=== PATIENT | female | born 1990 | race Caucasian/White ===

== ENCOUNTER 2024-11-03 13:58 | Emergency (ER) | payer OTHER, SELFPAY ==
--- OUTSIDE RECORDS SUMMARY | 2007-05-23 01:01 | XMS_ITS | Encounter Summary ---
Author Organization [facility] Address [address] [place] [address] Care Team Providers Care Retail Shift Leader Name Role Phone Susan Martins MD Primary Care Provider [phone] Source Comments In the event this information is protected by the Federal Confidentiality of Alcohol and Drug AbusePatient Records regulations: The Federal rules restrict any use of the information to criminally investigate or prosecute any alcohol or drug abuse patient.[facility] Encounter Details Date Type Department Care Team (Late st Contact Info) Description 05/23/2007 12:01 AM EST Hospital Encounter [facility] [address] [place], [place] [id number] [place] [address] [place] [address] 285.5 Social History Tobacco Use Types Packs/Day Years Used Date Smoking Tobacco: Former Cigarettes Smokeless Tobacco: Never Alcohol Use Standard Drinks/Week Comments Not Currently 0 (1 standard drink = 0.6 oz pur e alcohol) few times per year AUDIT-C Answer Date Recorded Q1: How often do you have a drink containing alc ohol? Monthly or less 10/07/2019 Q2: How many drinks containi ng alcohol do you have on a typical day when you are drinking? 1 or 2 10/07/2019 Q3: How often do you have si x or more drinks on one occasion? Never 10/07/2019 PHQ-2 Answer Date Recorded PHQ2 Score 0 01/27/2019 Area Deprivation Index Answer Date Jonnathan rded National Score (1-100), lower number is lower ri sk Not on file 03/15/2020 State Score (1-10), lower number is lower risk N ot on file 03/15/2020 Data from: https://www.neighborhoodatlas.medicine.[facility]/. Last address used for calculation Not on file 03/15/2020 Comments No Sex and Gender Information Value Date Recorded Sex Assigned at Not on file Legal Sex Female 9:21 AM EST Gender Identity Not on file Sexual Orientation Not on file COVID-19 Exposure Response Date Recorded In the last month, have you been in contact with someone who was confirmed or suspected to have Coronavirus / COVID-19? No / Unsure 05/16/2021 8:37 AM EST documented as of this encounter Functional Status documented as of this encounter Plan of Treatment Not on file documented as of this encounter Procedures Procedure Name Priority Date/Time Associated Diagnosis Comments U/S [facility] 05/29/2007 11:01 AM EST TSH BLD 05/23/2007 2:00 PM EST PROTHROMBIN TIME 05/23/2007 2:00 PM EST PROLACTIN BLD 05/23/2007 2:00 PM EST LUTEINIZING HORMONE 05/23/2007 2 :00 PM EST HCG QUANTITATIVE 05/23/2007 2:00 PM EST FSH BLD 05/23/2007 2:00 PM EST COMPLETE BLOOD COUNT 05/23/2007 2:00 PM EST ACTIVATED PTT 05/23/2007 2:00 PM EST [facility] 05/23/2007 1 2:34 PM EST documented in this encounter Results * U/S [facility] (05/29/2007 11:01 AM EST) Wellness Coach Indication: Menorrhagia. Gynecological Ultrasonography: Uterus: retroverted. Size: Longitudinal 64 mm. Anterio- posterior 46 mm. Transverse 52 mm. Volume: 80.2 ml. Endometrium: Endometrium thickness total: 26.0 mm. Adnexa: Right Ovary: normal. Right Ovary size: 21 mm x 10 mm x 18 mm. Volume: 2.0 ml. Left Ovary: normal. Left Ovary size: 24 mm x 20 mm x 24 mm. Volume: 6.0 ml. Cul de Sac / Pouch of Mohinder: no free fluid visible. Method: transabdominal ultrasound. Report Summary: Overall impression: The patient could not tolerate endovaginal ultrasound examination. Only transabdominal imaging was performed. The uterus is normal size with an endometrial thickness of 2.6mm. There is no significant fluid in the cul de sac. The ovaries appeared to be within normal limits. Recommendations / therapy: Clinical correlation. Preformed by:Carlita Conway RDMS,RVT Read by:Dr. Head [facility] ULTRASOUND Anatomical Region Laterality Modality Other 05/29/2007 11:0 1 AM EST 05/29/2007 11:01 AM EST Narrative 05/30/2007 12:41 AM EST Ordered by an unspecified provider. [facility] RADIOLOGY Final Result * TSH BLD (05/23/2007 2:00 PM EST) TSH 1.06 0.350 - 5.500 mcIU/mL [facility] 05/23/2007 2:00 PM EST 05/23/2007 6:18 PM EST Ashley Odonnell MD LABORATORY Final Result Performing Organization Address [facility] de Phone Number [facility] [address] [place] [address] * ACTIVATED PTT (05/23/2007 2:00 PM EST) APTT 29.5 Heparin Therapeutic Range: 1.5-2.5 times patient's baseline APTT 25.0 - 35.0 sec [facility] 05/23/2007 2:00 PM EST 05/23/2007 6:18 PM EST Ashley Odonnell MD LABORATORY Final Result Performing Organization Address [facility] de Phone Number [facility] [address] [place] [address] * PROTHROMBIN TIME/PT (05/23/2007 2:00 PM EST) PT Sec 10.6 8.8 - 11.2 sec [facility] PT INR 1.0 0.8 - 1.2 [facility] INR Comment Recommended Therapeutic Range 2.0 TO 3.0 FOR MOST INDICATIONS 2.5 TO 3.5 FOR HIGH RISK PATIENTS [facility] 05/23/2007 2:00 PM EST 05/23/2007 6:18 PM EST Ashley Odonnell MD LABORATORY Final Result Performing Organization Address [facility] de Phone Number [facility] [address] [place] [address] * PROLACTIN BLD (05/23/2007 2:00 PM EST) Prolactin 9.2 2.8 - 29.2 ng/mL [facility] 05/23/2007 2:00 PM EST 05/23/2007 6:18 PM EST us Ashley Odonnell MD LABORATORY Final Result Performing Organization Address [facility] de Phone Number [facility] [address] [place] [address] * LUTEINIZING HORMONE (05/23/2007 2:00 PM EST) Pathologist [facility] LH 3.2 LH NORMAL RANGES MALE: 1.5-9.3 MIU/ML FEMALE: FOLLICULAR 1.9-12.5 MID-CYCLE 8.7-76.3 LUTEAL 0.5-16.9 POST MENOPAUSAL 15.9-54.0 mIU/mL [facility] 05/23/2007 2:00 PM EST 05/23/2007 6:18 PM EST us Ashley Odonnell MD LABORATORY Final Result Performing Organization Address [facility] de Phone Number [facility] [address] [place] [address] * (ABNORMAL) HCG QUANTITATIVE (05/23/2007 2:00 PM EST) Pathologist [facility] HCG Quantitative <1 QUANTITATIVE HCG NORMAL RANGES GESTATIONAL AGE 0.2-1week (5-50 mIU/mL) 1-2 weeks (50-500 mIU/mL) 2-3 weeks (100-5000 mIU/mL) 3-4 weeks (500-10,000 mIU/mL) 4-5 weeks (1,000-50,00 0 mIU/mL) 5-6 weeks (10,000-100, 000 mIU/mL) 6-9 weeks (15,000-200, 000 mIU/mL) 2-3 months (10,000-100 ,000 mIU/mL) Referenced to WHO Standard for HCG 3rd IS(<) 0 - 25 mIU/mL [facility] 05/23/2007 2:00 PM EST 05/23/2007 6:18 PM EST us Ashley Odonnell MD LABORATORY Final Result Performing Organization Address [facility] de Phone Number [facility] [address] [place] [address] * FSH BLD (05/23/2007 2:00 PM EST) [facility] FSH 2.6 FSH NORMAL RANGES MALE: 1.4-18.1 FEMALE: FOLLICULAR 2.5-10.2 MIU/ML MID-CYCLE 3.4-33.4 LUTEAL 1.5-9.1 POST MENOPAUSAL 23-116.3 mIU/L [facility] 05/23/2007 2:00 PM EST 05/23/2007 6:18 PM EST Ashley Odonnell MD LABORATORY Final Result Performing Organization Address [facility] de Phone Number [facility] [address] [place] [address] * CBC + PLT (05/23/2007 2:00 PM EST) [facility] WBC 7.9 4.5 - 12.5 k/uL [facility] RBC 4.50 4.1 - 5.1 M/uL [facility] Hemoglobin 12.8 12.0 - 16.0 g/dL [facility] Hematocrit 39.4 36 - 46 % [facility] MCV 87.6 80 - 100 fL [facility] MCH 28.4 27 - 34 pg [facility] MCHC 32.5 31 - 37 g/dL [facility] RDW-CV 13.6 11.5 - 15.0 % [facility] Platelet Count 373 150 - 400 k/uL [facility] MPV 9.9 7.3 - 11.0 fL [facility] 05/23/2007 2:00 PM EST 05/23/2007 6:18 PM EST Ashley Odonnell MD LABORATORY Final Result Performing Organization Address [facility] Co de Phone Number [facility] [address] [place] [address] * FV_REFLAB - VON WILLEBRAND DIAGNOSTIC PANEL (05/23/2007 12:34 PM EST) Wellness Coach NAME: VON WILLEBRAND DIAGNOSTIC PANEL LAB: TEST PERFORMED BY [facility] RESULTS: SEE REFERENCE LAB REPORT UNITS: SEE REFERENCE LAB REPORT NORMAL RANGE: SEE REFERENCE LAB REPORT [facility] 05/23/2007 12:3 4 PM EST Ashley Odonnell MD LABORATORY Final Result [facility] [address] [place], [place] [id number] documented in this encounter Visit Diagnoses Not on filedocumented in this encounter Care Teams Retail Shift Leader Relationship Specialty [place] [address] [place], [place] [id number] PCP - General 04/22/07 07/29/07 documented as of this encounter
--- OUTSIDE RECORDS SUMMARY | 2011-05-02 15:58 | XMS_ITS | Encounter Summary ---
Author Organization [facility] Address [address] [place] [address] Care Team Providers Care Brick Shader Name Role Phone Courtney Franco DO Primary Care Provider Source Comments In the event this information is protected by the Federal Confidentiality of Alcohol and Drug AbusePatient Records regulations: The Federal rules restrict any use of the information to criminally investigate or prosecute any alcohol or drug abuse patient.[facility] Encounter Details Date Type Department Care Team (Late st Contact Info) Description 05/02/2011 2:58 PM EST Hospital Encounter [facility] [address] [place], [place] [id number] [place] [address] [place] [address] 763.7 Social History Tobacco Use Types Packs/Day Years [...] N ot on file 03/15/2020 Data from: https://www.neighborhoodatlas.[facility]/. Last address used for calculation Not on [...] Functional Status documented as of this encounter Miscellaneous Notes * Administrative - [facility] Provider - 05/19/2011 12:44 AM EST * [facility] - [facility] Provider - 05/03/2011 2:49 PM EST * [facility] Provider - 05/03/2011 2:49 PM EST documented in this encounter Plan of Treatment Not on file documented as of this encounter Procedures Procedure Name Priority Date/Time Associated Diagnosis Comments GONORRHEA/CHLAMYDIA NAAT 05/02/2011 10:22 AM EST documented in this encounter Results * GC/CHLAMYDIA DNA DET (05/02/2011 10:22 AM EST) GC/Chlam Amp Source [facility] GC Amplif Negative for Neisseria gonorrhoeae by amplification. [facility] Chlamydia Amplif Negative for Chlamydia trachomatis by amplification. Test performed by: [facility], [facility][note 2] [address], [place] [address] CLIA [id number] [facility] 05/02/2011 10:2 2 AM EST 05/02/2011 3:05 PM EST Ashley Odonnell MD MICROBIOLOGY Final Result [facility] [address] [place] [address] documented in this encounter Visit Diagnoses Not on filedocumented in this encounter Care Teams Brick Shader Relationship Specialty [place] [address] [place] [address] PCP - General 07/30/07 10/26/15 documented as of this encounter
[2024-11-03 14:04] VITALS: BP 142/99; PULSE 91; TEMP 36.6; O2SAT 100; BMI 26.5
--- NOTE | 2024-11-03 14:06 | ED.GENADUL1 ---
HPI HPI - General Adult General Chief complaint: Skin/Abscess/Foreign Body Stated complaint: RASH Time Seen by Provider: 11/03/24 14:02 History of Present Illness HPI narrative: 34-year-old female presents for a pruritic rash which has been waxing and waning through most areas of her body for the past 4 days. She has not been on any new medications or been exposed to any new products. She has been using oral Benadryl and a steroid cream but it does not seem to be helping. No difficulty breathing or swallowing. She has not been under any unusual stress. Related Data Home Medications ?Medication ?Instructions ?Recorded ?Confirmed atomoxetine 40 mg capsule 40 mg PO DAILY 11/03/24 11/03/24 dextroamphetamine-amphetamine 10 10 mg PO DAILY 11/03/24 11/03/24 mg tablet (Adderall) escitalopram oxalate 20 mg tablet 20 mg PO DAILY 11/03/24 11/03/24 (Lexapro) Previous Rx's ?Medication ?Instructions ?Recorded prednisone 10 mg tablet See Rx Instructions .Route 11/03/24 .COMPLEX #30 tabs Allergies Allergy/AdvReac Type Severity Reaction Status Date / Time No Known Drug Allergies Allergy Verified 11/03/24 14:07 Review of Systems ROS Narrative A ten point review of systems is negative except as noted above. PFSH PFSH Social History Little interest or pleasure in doing things: not at all Feeling down, depressed, or hopeless: not at all Exam Narrative Exam Narrative: Nurses note and vital signs reviewed and patient is not hypoxic. General: The patient appears well and in no apparent distress. Patient is resting comfortably on cart. Skin: Warm, dry, no pallor noted. There are areas of erythema on various areas of her body, scattered. It is most prominent on her back and has the appearance of hives. Head: Normocephalic, atraumatic Eye: Normal conjunctiva, no drainage Ears, Nose, Mouth, and Throat: oral mucosa is moist. Nares patent. Tongue not swollen Cardiovascular: Regular Rate and Rhythm Respiratory: Patient is in no distress, no accessory muscle use, lungs are clear to auscultation, no wheezing, rales or rhonchi Back: non-tender GI: Soft and nontender Musculoskeletal: The patient has no evidence of calf tenderness, no pitting edema, symmetrical pulses noted bilaterally Neurological: A&O, normal speech Psychiatric: Cooperative Constitutional Vital Signs, click to edit/add: Last Vital Signs Temp 98 F 11/03/24 14:04 Pulse 91 H 11/03/24 14:04 Resp 18 11/03/24 14:04 BP 142/99 H 11/03/24 14:04 Pulse Ox 100 11/03/24 14:04 O2 Del Method Room Air 11/03/24 14:04 Course Vital Signs Vital signs: Vital Signs Temperature 98 F 11/03/24 14:04 Pulse Rate 91 H 11/03/24 14:04 Respiratory Rate 18 11/03/24 14:04 Blood Pressure 142/99 H 11/03/24 14:04 Pulse Oximetry 100 11/03/24 14:04 Oxygen Delivery Method Room Air 11/03/24 14:04 Temperature 98 F 11/03/24 14:04 Pulse Rate 91 H 11/03/24 14:04 Respiratory Rate 18 11/03/24 14:04 Blood Pressure 142/99 H 11/03/24 14:04 Pulse Oximetry 100 11/03/24 14:04 Oxygen Delivery Method Room Air 11/03/24 14:04 Medical Decision Making MDM Narrative Medical decision making narrative: The patient is improved with being given IV Solu-Medrol and Pepcid. She is feeling improved. She was not given IV Benadryl because she does not have a ride. She is prescribed prednisone. Treatment diagnosis and follow-up were discussed with the patient. Differential Diagnosis Differential Diagnosis: Urticaria, allergic reaction Discharge Plan Discharge Chief Complaint: Skin/Abscess/Foreign Body Clinical Impression: Urticaria Patient Disposition: Home, Self-Care Time of Disposition Decision: 15:10 Condition: Good Mode of Transportation: Private Vehicle Prescriptions / Home Meds: New prednisone 10 mg tablet See Rx Instructions .ROUTE .COMPLEX Qty: 30 0RF Rx Instructions: 4 by mouth daily for three days then 3 by mouth daily for three days then 2 by mouth daily for three days then 1 by mouth daily for three days No Action dextroamphetamine-amphetamine [Adderall] 10 mg tablet 10 mg PO DAILY escitalopram oxalate [Lexapro] 20 mg tablet 20 mg PO DAILY atomoxetine 40 mg capsule 40 mg PO DAILY Print Language: Lao Instructions: Urticaria (ED) Referrals: Linda Russell DO [Primary Care Provider] - 1 week
[2024-11-03] MEDS: METHYLPREDNISOLONE SOD SUCC PF 125 MG/2 ML VIAL IVP (14:13)
[2024-11-03] MEDS: FAMOTIDINE/PF 20 MG/2 ML VIAL IV (14:13)
--- OUTSIDE RECORDS SUMMARY | 2024-11-03 14:13 | XMS_ITS | Encounter Summary ---
Author Organization [facility] Address [address] [place] [address] Phone Care Team Providers Care Water Hauler Name Role Phone Carmen Barreto Unavailable [phone] Encounter Details Date Type Department Care Team (Late st Contact Info) Description 01/11/2024 Patient Risk Score [facility]CO Care Management [address] [facility] [address] [place] [phone] Social History Tobacco Use Types Packs/Day Years Used Date Smoking Tobacco: Never Assessed Comments Unknown Sex and Gender Information Value Date Recorded Sex Assigned at Not on file Legal Sex Female 11:48 AM EST Gender Identity Not on file Sexual Orientation Not on file documented as of this encounter Plan of Treatment Not on file documented as of this encounter Visit Diagnoses Not on filedocumented in this encounter Care Teams Water Hauler Relationship Specialty Start Date End Date Carmen Barreto APRN-CNP [address] [facility] [place] [address] PCP - Suzanne ACO PCP 12/09/23 02/07/24 documented as of this encounter
--- OUTSIDE RECORDS SUMMARY | 2024-11-03 14:13 | XMS_ITS | Encounter Summary ---
Author Organization [facility] Address [address] [place] [address] Phone Care Team Providers Care Prison Librarian Name Role Phone Nadia Ocasio Unavailable [phone] Carmen BarretoCUSTOMER SUPPORT ANALYST Unavailable [phone] Encounter Details Date Type Department Care Team (Late st Contact Info) Description 08/11/2023 Patient Risk Score ACO Care Management [address] [facility] [address] [place] [phone] Social History Tobacco Use Types Packs/Day Years [...] on filedocumented in this encounter Care Teams Prison Librarian Relationship Specialty Start Date End Date HermannlaurentNadia [address] [place] [address] PCP - [place] ACO PCP 07/09/23 12/08/23 Carmen Barreto APRN-CUSTOMER SUPPORT ANALYST [address] [facility], [facility] [address] [place] [address] PCP - [place] ACO PCP 12/09/23 02/07/24 documented as of this encounter
--- OUTSIDE RECORDS SUMMARY | 2024-11-03 14:13 | XMS_ITS | Encounter Summary ---
Author Organization [facility] Address [address] [place] [address] Phone Care Team Providers Care Netsuite Consultant Name Role Phone Nadia Ocasio Unavailable [phone] Carmen Barreto APRN-ROLLING MACHINE OPERATOR Unavailable [phone] Encounter Details Date Type Department Care Team (Late st Contact Info) Description 09/11/2023 Patient Risk Score ACO Care Management [address] [facility] [address] [place] [phone] Social History Tobacco Use Types Packs/Day Years [...] on filedocumented in this encounter Care Teams Netsuite Consultant Relationship Specialty Start Date End Date HermannlaurentNadia [address] [facility] [place] [address] PCP - [place] ACO PCP 07/09/23 12/08/23 Carmen Barreto APRN-ROLLING MACHINE OPERATOR [address] [facility], [facility] [address] [place] [address] PCP - [place] ACO PCP 12/09/23 02/07/24 documented as of this encounter
--- OUTSIDE RECORDS SUMMARY | 2024-11-03 14:13 | XMS_ITS | Encounter Summary ---
Author Organization [facility] Address [address] [place] [address] Care Team Providers Care Protective Signal Superintendent Name Role Phone Kim Padgett MD Primary Care Provider Stefani Leiva ROLL HANDLER.SET RIDER Unavailable Bridgett Garcia ROLL HANDLER.SET RIDER Unavailable [phone] Lizabeth Sorenson PA-C Unavailable Marissa Oneal ROLL HANDLER.SET RIDER Unavailable Katelin Melendrez PA-C Unavailable Bridgett Garcia ROLL HANDLER.SET RIDER Unavailable [phone] Stefani Leiva ROLL HANDLER.SET RIDER Unavailable Katelin Melendrez PA-C Unavailable Lizabeth Sorenson PA-C Unavailable Maricarmen Sherman PA-C Unavailable [phone] Source Comments In the event this information is protected by the Federal Confidentiality of Alcohol and Drug AbusePatient Records regulations: The Federal rules restrict any use of the information to criminally investigate or prosecute any alcohol or drug abuse patient.[facility] Encounter Details Date Type Department Care Team (Late st Contact Info) Description 06/09/2021 Patient Msg Maternal Medicine [address] [place] [phone] [place] [address] [address] [place], [place] [phone] Appointment Cancellation Request Social History Tobacco Use Types Packs/Day Years [...] N ot on file 03/15/2020 Data from: https://www.neighborhoodatlas.medicine.[facility].edu/. Last address used for calculation Not on file 03/15/2020 Comments Yes Sex and Gender Information Value Date Recorded [...] documented as of this encounter Functional Status * Are you deaf or do you have serious difficulty hearing? Answer Date of Assessment Author No 10/23/2013 2:52 PM EDT Regi Claudio MA * Are you blind or do you have serious difficulty seeing, even when wearing glasses? Answer Date of Assessment Author No 10/23/2013 2:52 PM EDT Regi Claudio MA * Do you have serious difficulty walking or climbing stairs? Answer Date of Assessment Author No 10/23/2013 2:52 PM EDT Regi Claudio MA * Do you have difficulty dressing or bathing? Answer Date of Assessment Author No 10/23/2013 2:52 PM EDT Regi Claudio MA * Because of a physical, mental, or emotional condition, do you have difficulty doing errands alone such as visiting a doctor's office or shopping? Answer Date of Assessment Author No 10/23/2013 2:52 PM EDT Regi Claudio MA documented as of this encounter Mental Status * Because of a physical, mental, or emotional condition, do you have serious difficulty concentrating, remembering, or making decisions? Answer Entry Date Author No 10/23/2013 2:52 PM EDT Regi Claudio MA documented in this encounter Plan of Treatment Not on file documented as of this encounter Visit Diagnoses Not on filedocumented in this encounter Care Teams Protective Signal Superintendent Relationship Specialty Start Date End Date Kim Padgett MD PCP - General Family Medicine 10/27/15 Stefani Leiva APRN.SET RIDER [address] [place] [address] Research/Program Director Family Medicine 03/16/24 04/16/24 Bridgett Garcia APRN.SET RIDER [address] [place] [address] Research/Program Director Family Medicine 03/16/24 04/16/24 Lizabeth Sorenson PA-C [address] [place] [address] Research/Program Director Family Medicine 03/16/24 04/16/24 Marissa Oneal APRN.SET RIDER [address] [place] [address] Research/Program Director Family Medicine 03/16/24 Katelin Melendrez PA-C [facility] [address] Research/Program Director Family Medicine 03/16/24 04/16/24 Bridgett Garcia ROLL HANDLER.SET RIDER [address] [place] [address] Research/Program Director Family Medicine 05/29/24 08/21/24 Stefani Leiva, ROLL HANDLER.SET RIDER [address] [place] [address] Research/Program Director Family Medicine 05/29/24 08/21/24 Katelin Melendrez PA-C [facility] [place] [address] Research/Program Director Family Medicine 05/29/24 08/21/24 Lizabeth Sorenson PA-C [address] [place] [address] Research/Program Director Family Medicine 05/29/24 08/21/24 Maricaremn Sherman PA-C [address] [place] [address] Research/Program Director Family Medicine 05/29/24 08/21/24 documented as of this encounter
--- OUTSIDE RECORDS SUMMARY | 2024-11-03 14:13 | XMS_ITS | Clinical Summary ---
Author Organization [facility] Address [address] [place] [address] Care Team Providers Care Rf Microwave Engineer Name Role Phone Kim Padgett MD Primary Care Provider [phone] Marissa Oneal APRN.JUNIOR ENGINEER Unavailable Allergies Active Allergy Reactions Criticality Noted Date Comments Oxycodone Vomiting 07/07/2013 Medications albuterol HFA (PROVENTIL HFA, VENTOLIN HFA) 90 mcg/actuation inhalerIndicati ons:Viral URI with cough,Wheezing Inhale 2 Puffs as instructed every 4 hours as needed. 1 Inhaler 9 Active [id number] fum-folic ac-om3 (ONE A DAY WOMEN'S DHA) 28 mg iron- 800 mcg cmpk Take 1 tablet by mouth once daily. 2 Active ibuprofen (MOTRIN) 600 mg tablet Take 1 tablet by mouth every 8 hours as needed for pain. 20 tablet 5 2 Active Active Problems Problem Noted Date Diagnosed Date Supervision of other normal , antepartu m 06/03/2021 Unplanned wanted 06/03/2021 History of being tatooed 06/03/2021 06/03/2021 Dysfunction of right eustachian tube 02/24/2021 Pain in right hip 04/17/2018 Chronic bilateral low back pain with right-sided sciatica 04/17/2018 Goiter, unspecified 08/07/2002 Resolved Problems Problem Noted Date Diagnosed Date Resolved Date Cholecystitis, unspecified 06/19/2013 0 10/26/2015 Cat bite 03/12/2009 10/26/2015 Abrasion of lower limb 12/25/200810/25 Contusion, knee 12/25/2008 10/26/2015 Immunizations Immunization Administration Dates Next Due COVID-19 original vaccine, a ge 12+ yr, monovalent (Attender - PURPLE TOP) 08/17/2020 chicken pox (disease) 10/08/1995 diphtheria tetanus pertussis (DTaP) vaccine, pediatric (INFANRIX) 11/04/1996 hepatitis B (HepB) vaccine, 3-dose series, age 0 yr - 19 yr (ENGERIX B-PEDS, RECOMBIVAX HB-PEDS) 12/01/2011 human papillomavirus (HPV4) vaccine, quadrivalent (GARDASIL) 02/03/2009,10/03/2007,08/22/2007 influenza (IIV4) vaccine, ag e 6 mo - 64 yr, quadrivalent, PF (AFLURIA, FLUARIX, FLULAVAL, FLUZONE) 01/14/2015 influenza (IIV4) vaccine, qu adrivalent (AFLURIA, FLULAVAL, FLUZONE) 01/14/2015 influenza (ccIIV4) vaccine, age 6+ mo, quadrivalent, PF (FLUCELVAX) 02/18/2018 influenza vaccine, unspecified formulation 12/19 measles mumps rubella (MMR) vaccine (M-M-R II, PRIORIX) 11/04/1996 meningococcal (MenACYW) vacc ine, quadrivalent, unspecified formulation 01/05/2005 pneumococcal polysaccharide (PPV23) vaccine, 23 valent (PNEUMOVAX 23) 10/26/2015 poliovirus (IPV) vaccine, in activated (IPOL) 11/04/1996 tetanus diphtheria pertussis (Tdap) vaccine, age 7+ yr (ADACEL, BOOSTRIX) 05/06/2018,01/02/2010,08/13/2006 tuberculin skin test (TST-PP D), purified protein derivative, intradermal 12/20/2011,12/01/2011 Family History Medical History Relation Comments Amblyopia Brother alcoholic Brother Coronary Artery Disease Father liposarcoma Father Cancer Maternal Grandfather lung Cancer Maternal Grandmother lung Hypertension Maternal Grandmother father scleroderma Maternal Grandmother systemic, m other alcoholic Mother depression Mother /suicide fibromyalgia Mother rheumatoid Mother Cancer Paternal Grandmother None Sister Relation Status Comments Brother Father Maternal Grandfather Maternal Grandmother Mother Paternal Grandmother Sister Social History Tobacco Use Types Packs/Day Years Used Date Smoking Tobacco: Former Cigarettes Smokeless Tobacco: Never Tobacco Cessation:Counseling Given: No Alcohol Use Standard Drinks/Week Comments Not Currently [...] N ot on file 03/15/2020 Data from: https://www.neighborhoodatlas.medicine.[facility]/. Last address used for calculation Not on file 03/15/2020 Comments No Sex and Gender Information Value Date Recorded Sex Assigned at Not on file Legal Sex Female 9:21 AM EST Gender Identity Not on file Sexual Orientation Not on file Last Filed Vital Signs Vital Sign Reading Time Taken Comments Blood Pressure 122/78 06/02/2021 9:29 AM EST Pulse 68 06/02/2021 9:29 AM EST Temperature 36.6 C (97.9 F) 09/19/2020 7:18 PM EDT Respiratory Rate 16 09/19/2020 7:18 PM EDT Oxygen Saturation 97% 09/19/2020 7:18 PM EDT Inhaled Oxygen Concentration - - Weight 83 kg (183 lb) 06/02/2021 9:29 AM EST Height 160 cm (5' 3 ) 06/02/2021 9:29 AM EST Body Mass Index 32.42 06/02/2021 9:29 AM EST Plan of Treatment Health Maintenance Due Date Last Done Comments Anxiety Screening 09/27/2009 Depression Screening 09/27/2009 Hepatitis B Vaccine (2 of 3 - 3-dose series) 12/29/2011 12/01/2011, 05/20/2009 (Other) Covid-19 Vaccine (3 2023-2 5 season) 2023 12/24/2020, 08/17/2020 Cervical Cancer Screening 06/02/20242021, 06/02/2021, 04/29/2020, Additional history exists Influenza Vaccine (#1) 2024 8, 01/18/2017 (Patient/Parent/Guardian Counseled and Declines), 01/14/2015, Additional history exists DTaP,Tdap,Td Vaccine (5 - Td or Tdap) 05/06/2028 05/06/2018, 01/02/2010, 08/13/2006, Additional history exists HIV Screening Completed 06/02/2021, 08/24/2016 Hepatitis C Screening Completed 06/02/2021 Procedures Procedure Name Priority Date/Time Associated Diagnosis Comments HIV 1/2 COMBO WITH REFLEX TO DIFFERENTIATION Routine 06/02/2021 10:34 AM EST Supervision of other normal , antepartum HEPATITIS C ANTIBODY IA WITH CONFIRMATION Routine 06/02/2021 10:34 AM EST Supervision of other normal , antepartum PAP FLUID CERVICAL SCREENING Routine 06/02/2021 10:12 AM EST Screening for malignant neoplasm of cervix from Last 3 Months or Most Recently Relevant to Health Maintenance Results * HIV 1 2 COMBO(AG/AB),WITH REFLEX TO DIFFERENTIATION (06/02/2021 10:34 AM EST) HIV 12 Combo (Ag/Ab) Non Reactive Non Reactive 06/02/2021 5:54 PM EST [facility] HIV-1/2 AB Test Not Indicated 06/02/2021 5:54 PM EST [facility] HIV Interpretation Negative 06/02/2021 5:54 PM EST [facility] Comment: No evidence of HIV-1 or HIV-2 infection. Should recent infection be suspected, repeat testing may be considered 2-3 weeks after this draw. HIV Information: [place] Rev. Code 3701.243(E): This information has been disclosed to you from confidential records protected from disclosure by state law. You shall make no further disclosure of this information without the specific, written, and informed release of the individual to whom it pertains or as otherwise permitted by state law. A general authorization for the release of medical or other information is not sufficient for the purpose of the release of HIV test results or diagnoses. Blood OTHER / Unknown 06/02/2021 1 0:34 AM EST 06/02/2021 10:36 AM EST Chema Mason MD LABORATORY Final Result Performing Organization Address City/[facility]/ZIP Co de Phone Number [facility] [address] [place] [address] * HEP C AB IA W/CONF SCRN (06/02/2021 10:34 AM EST) Hep C Antibody IA Negative Negative 06/02/2021 5:54 PM EST [facility] Blood OTHER / Unknown 06/02/2021 1 0:34 AM EST 06/02/2021 10:36 AM EST Chema Mason MD LABORATORY Final Result Performing Organization Address [facility] Co de Phone Number [facility] [address] [place] [phone] [facility] [address] [place] [phone] * (ABNORMAL) PAP FLUID CERVICAL SCREENING (06/02/2021 10:12 AM EST) Dust Collector Attendant ADDITIONAL PROCEDURES PRESENT ---Abnormal Pap Test - Epithelial Cell Abnormality--- Specimen originated from [facility] Specimen #: [id number] Submitting Physician: CHEMA MASON M.D. (ST10) SPECIMEN SUBMITTED A: CERVICAL, SCREENING, FLUID FINAL DIAGNOSIS A. CERVICAL, SCREENING, FLUID Satisfactory for interpretation. Epithelial cell abnormality. Low grade squamous intraepithelial lesion (LSIL). This specimen has been analyzed by the ThinPrep Imaging System, an automated imaging and review system, which assists the laboratory in evaluating cells on ThinPrep Pap tests. Following automated imaging, selected marrufo from every slide are reviewed by a datacap developer. Jeana Webb M.D. (Electronic Signature) ADDITIONAL PROCEDURE(S) HUMAN PAPILLOMA VIRUS Date Ordered: 06/03/2021 Date Reported: 06/04/2021 Procedure Results and Interpretation Negative for HPV DNA high risk type 16 by PCR. Negative for HPV DNA high risk type 18 by PCR. Positive for one or more of the following HPV DNA high risk types: 31,33,35,39,45,51, 52,56,58,59,66,68 by PCR(*) This test was developed and its performance characteristics determined by [facility]'s [facility] ([facility]). It has not been cleared or approved by the FDA. [facility] is regulated under CLIA as qualified to perform high-complexity testing. This test is used for clinical purposes. It should not be regarded as investigational or for research. CLINICAL DATA - 6 WEEKS, HPV Testing: Yes, automatic HPV patients over 30 Date of Last Menstrual Period: 04/07/2021(Pregnan t) STAINS A: CERVICAL, SCREENING, FLUID THIN PREP DELIVERY STOCK CLERK Date of Report: 06/10/2021 Date of Procedure: 06/02/2021 Date of Receipt: 06/03/2021 Submitted by: CHEMA MASON M.D. (ST10) Location: [facility] Diagnostic interpretation performed at [facility], [address] [place], [place] [id number]. CLIA Number: [id number] The Pap Smear is a screening test for cervical cancer. False negative results occur with all screening tests, emphasizing the need for rescreening at recommended intervals, and clinical correlation.(A) COPATHPLUS Cervix SPECIMEN FROM CERVIX OR VAGINA / Unknown 06/02/2021 10:12 AM EST 06/03/2021 10:01 AM EST us Chema Mason MD CYTOLOGY Edited Result - Final COPATHPLUS [address] [place], [place] [phone] from Last 3 Months or Most Recently Relevant to Health Maintenance [facility] [address] [place] [address] Care Teams Rf Microwave Engineer Relationship Specialty Start Date End Date Kim Padgett MD PCP - General Family Medicine 10/27/15 Marissa Oneal APRN.JUNIOR ENGINEER [address] [place] [address] [employer] Family Medicine 03/16/24
--- OUTSIDE RECORDS SUMMARY | 2024-11-03 14:13 | XMS_ITS | Encounter Summary ---
Author Organization [facility] Address [address] [place] [address] Phone Care Team Providers Care Supply Assistant Name Role Phone Nadia Ocasio Unavailable [phone] Carmen Barreto APRN-VALIDATION CONSULTANT Unavailable [phone] Encounter Details Date Type Department Care Team (Late st Contact Info) Description 11/11/2023 Patient Risk Score ACO Care Management [address] [facility] [address] [place] [phone] Social History Tobacco Use Types Packs/Day Years [...] on filedocumented in this encounter Care Teams Supply Assistant Relationship Specialty Start Date End Date HermannlaurentNadia [address] [facility] [place] [address] PCP - [place] [facility] PCP 07/09/23 12/08/23 Carmen Barreto APRN-VALIDATION CONSULTANT [address] [address] [facility] [address] [place] [address] PCP - [place] ACO PCP 12/09/23 02/07/24 documented as of this encounter
--- OUTSIDE RECORDS SUMMARY | 2024-11-03 14:13 | XMS_ITS | Encounter Summary ---
Author Organization [facility] Address [address] [place] [address] Care Team Providers Care Football Scout Name Role Phone Kim Padgett MD Primary Care Provider Stefani Leiva HOSPICE CARE CONSULTANT.LABORER [employer] Unavailable Bridgett Garcia HOSPICE CARE CONSULTANT.LABORER [employer] Unavailable [phone] Lizabeth Sorenson PA-C Unavailable Marissa Oneal HOSPICE CARE CONSULTANT.LABORER [employer] Unavailable Katelin Melendrez PA-C Unavailable Bridgett Garcia HOSPICE CARE CONSULTANT.LAB[employer]ER [employer] Unavailable [phone] Stefani Leiva HOSPICE CARE CONSULTANT.LABORER [employer] Unavailable Katelin Melendrez PA-C Unavailable Lizabeth Sorenson PA-C Unavailable Maricarmen Sherman PA-C Unavailable [phone] Source Comments In the event this information is protected by the Federal Confidentiality of Alcohol and Drug AbusePatient Records regulations: The Federal rules restrict any use of the information to criminally investigate or prosecute any alcohol or drug abuse patient.[facility] Encounter Details Date Type Department Care Team (Late st Contact Info) Description 06/09/2021 Patient Msg Maternal Medicine [address] [place] [phone] [place] [address] [place], [place] [phone] Appointment Cancellation Request Social History Tobacco Use [...] N ot on file 03/15/2020 Data from: https://www.neighborhoodatlas.medicine.[facility].edu/. Last address used for calculation [...] on filedocumented in this encounter Care Teams Football Scout Relationship Specialty Start Date End Date Kim Padgett MD PCP - General Family Medicine 10/27/15 Stefani Leiva APRN.LABORER [employer] [address] [place] [address] Launch Engineer Family Medicine 03/16/24 04/16/24 Bridgett Garcia APRN.LABORER [employer] [address] [place] [address] Launch Engineer Family Medicine 03/16/24 04/16/24 Lizabeth Sorenson PA-C [address] [place] [address] Launch Engineer Family Medicine 03/16/24 04/16/24 Marissa Oneal APRN.LABORER [employer] [address] [place] [address] Launch Engineer Family Medicine 03/16/24 Katelin [facility]end[facility]-C [facility] [place] [address] Launch Engineer Family Medicine 03/16/24 04/16/24 Bridgett Garcia HOSPICE CARE CONSULTANT.[employer] [address] [place] [address] Launch Engineer Family Medicine 05/29/24 08/21/24 Stefani Leiva, HOSPICE CARE CONSULTANT.[employer] [address] [place] [address] Launch Engineer Family Medicine 05/29/24 08/21/24 Katelin Melendrez PA-C [facility] [place] [address] Launch Engineer Family Medicine 05/29/24 08/21/24 Lizabeth Sorenson PA-C [address] [place] [address] Launch Engineer Family Medicine 05/29/24 08/21/24 Maricarmen Sherman PA-C [address] [place] [address] Launch Engineer Family Medicine 05/29/24 08/21/24 documented as of this encounter
--- OUTSIDE RECORDS SUMMARY | 2024-11-03 14:13 | XMS_ITS | Encounter Summary ---
Author Organization [facility] Address [address] [place] [address] Phone Care Team Providers Care Master Technician Name Role Phone Nadia Ocasio Unavailable [phone] Carmen Barreto APRN-ETL ANALYST Unavailable [phone] Encounter Details Date Type Department Care Team (Late st Contact Info) Description 10/11/2023 Patient Risk Score ACO Care Management [address] [facility] [address] [place] [phone] Social History Tobacco Use Types Packs/Day Years [...] on filedocumented in this encounter Care Teams Master Technician Relationship Specialty Start Date End Date HermannlaurentNadia [address] [facility] [place] [address] PCP - [place] [facility] PCP 07/09/23 12/08/23 Carmen Barreto APRN-ETL ANALYST [address] [address] [facility] [address] [place] [address] PCP - [place] [facility] PCP 12/09/23 02/07/24 documented as of this encounter
--- OUTSIDE RECORDS SUMMARY | 2024-11-03 14:13 | XMS_ITS | Encounter Summary ---
Author Organization [facility] Address [address] [place] [address] Phone Care Team Providers Care Qc Scientist Name Role Phone Unavailable Primary Care Provider Unavailabl e Encounter Details Date Type Department Care Team (Late st Contact Info) Description 02/11/2024 Patient Risk Score ACO Care Management [address] [place] [phone] Social History Tobacco Use Types Packs/Day Years [...]
--- OUTSIDE RECORDS SUMMARY | 2024-11-03 14:13 | XMS_ITS | Patient Health Record ---
Author Organization [facility] es Address [address] [place] [address] Care Team Providers Care Case Assembler Name Role Phone Aranza Vazquez Primary Care Provider [phone] MELISSA ANDERSON Unavailable [phone] Allergies No Known Allergies Reason For Referral Reason 07/04 attempt, refe rral from pcp for generalized anxiety, depression Gissell Valdez. Diagnosis 1 Encounter for screen ing examination for mental health and behavioral disorders (Z13.30) Referral Organization [facility] Referring Provider First Name MELISSA Referring Provider Last Name JUSTIN Referring Provider Speciality Family Med icine Referred Organization [facility] Referred Address [address] [place] [place],[address], Referred Provider Specialty Medicatio ns Referral Priority Routine Medications Medication SIG (Take, Route, Frequency, Duration) Notes Start Date End Date Status Escitalopram Oxalate 20 MG 1 tablet Orally Once a day; Duration: 30 days Active Atomoxetine HCl 40 MG 1 capsule in the morning Orally Once a day; Duration: 30 days 07/16/2024 12/11/2024 Active Adderall XR 10 MG 1 capsule in the morning Orally Once a day; Duration: 30 days DNF until 10-27-24 09/29/2024 Active Adderall XR 10 MG 1 capsule in the morning Orally Once a day; Duration: 30 days 09/29/2024 Active Mirena (52 MG) 20 MCG/DAY as directed Intrauterine Active Social History Tobacco Use: Social History Observation Description Date Details (start date - stop date) Current Smoker NA - NA AUDIT-C (Standard) Question Answer Notes Did you have a drink containing alcohol in the p ast year? No Points 0 Interpretation Negative Tobacco Control (Standard) Question Answer Notes Tobacco use: Current smoker How often do you smoke cigarettes? Every day How many cigarettes a day do you smoke? 5 or les s How soon after you wake up d o you smoke your first cigarette? After 60 minutes Are you interested in quitting? Thinking about q uitting Additional Findings: Tobacco user Trivia l cigarette smoker (less than 1 cig/day) Problems Problem Type SNOMED Code ICD Code Onset Dates Problem Status W/U Status Risk Notes Problem Tobacco user (103848769) Nicotine dependence, unspecified, uncomplicated (F17.200) Active confirmed Problem Attention deficit hyperactivity disorder (331283602) ADHD (attention deficit hyperactivity disorder), combined type (F90.2) Active confirmed Problem Moderate recurrent major depression (07199136) Moderate episode of recurrent major depressive disorder (F33.1) Active confirmed Problem Generalized anxiety disorder (45789653) Anxiety, generalized (F41.1) Active confirmed Vital Signs Heart Rate 66 /min 09/29/2024 Temperature 97.6 degrees Fahrenheit 09/12/2024 Oximetry 97 % 09/29/2024 Blood pressure diastolic 72 mm Hg 09/29/2024 Height 64 in 09/29/2024 Blood pressure systolic 106 mm Hg 09/29/2024 Weight 154.8 lbs 09/29/2024 BMI 26.57 kg/m2 09/29/2024 Encounters Encounter Location Date Provider Diagnosis [facility] [address] [facility] [place] [address] 08/18/2024 Aranza Vazquez Moderate episode of recurrent major depressive disorder F33.1 and ADHD (attention deficit hyperactivity disorder), combined type F90.[address] [address] 07/16/2024 Aranza Vazquez Moderate episode of recurrent major depressive disorder F33.1 ; ADHD (attention deficit hyperactivity disorder), combined type F90.2 and Anxiety, generalized F41.1 [facility] [address] [place] [address] 08/15/2024 Aranza Vazquez ADHD (attention defi cit hyperactivity disorder), combined type F90.2 ; Moderate episode of recurrent major depressive disorder F33.1 and Nicotine dependence, unspecified, uncomplicated F17.200 [facility] [address] [facility] [place] [address] 09/12/2024 Aranza Vazquez Moderate episode of recurrent major depressive disorder F33.1 and ADHD (attention deficit hyperactivity disorder), combined type F90.2 [facility] [address] [facility] [place] [address] 09/29/2024 Aranza Vazquez ADHD (attention defi cit hyperactivity disorder), combined type F90.2 Assessments Encounter Date Diagnosis (ICD Code) Assessment Notes Treatment Notes Treatment Clinical Notes Section Notes 07/16/2024 ADHD (attention deficit hyperactivity disorder), combined type (ICD-10 - F90.2) Patient meets the criteria for the diagnosis of Attention Deficit Hyperactivity Disorder. Recommended treatment is FDA approved stimulant medication for this age group. At this time, will start *Atomoxetine 40mg daily. Discussed adverse effects from medication including HTN, tachycardia, insomnia, irritability, headache, or decreased appetite. OARRS reviewed, patient history consistent with report. The patient verbalizes understanding with all questions answered thoroughly and is in agreement with treatment plan. Currently at low risk for self harm. Denies ongoing feelings of hopelessness. Denies ongoing suicidal ideation, intent or plan in session. Follow up in 1 month & PRN. 07/16/2024 Moderate episode of recurrent major depressive disorder (ICD-10 - F33.1) Mood has room for improvement, will increase *Escitalopram to 20mg daily. Discussed risks and side effects of medication. Patient denies SI/HI today. Follow up if mood does not improve. Patient verbalized understanding. 08/15/2024 ADHD (attention deficit hyperactivity disorder), combined type (ICD-10 - F90.2) Patient meets the criteria for the diagnosis of Attention Deficit Hyperactivity Disorder. Recommended treatment is FDA approved stimulant medication for this age group. At this time, will start *Vyvanse. Discussed adverse effects from medication including HTN, tachycardia, insomnia, irritability, headache, or decreased appetite. OARRS reviewed, patient history consistent with report. The patient verbalizes understanding with all questions answered thoroughly and is in agreement with treatment plan. Currently at low risk for self harm. Denies ongoing feelings of hopelessness. Denies ongoing suicidal ideation, intent or plan in session. Follow up in 1 month & PRN. 08/15/2024 Moderate episode of recurrent major depressive disorder (ICD-10 - F33.1) Depression and Anxiety stable and improved. Will continue current medication. F/U 1 months & PRN 08/18/2024 Moderate episode of recurrent major depressive disorder (ICD-10 - F33.1) 09/12/2024 Moderate episode of recurrent major depressive disorder (ICD-10 - F33.1) Continue medication, potential side effects were discussed as well as proper administration of medication. Pt verbalizes understanding. Pt is aware not to stop medication suddenly and to come to office to be weaned down, abrupt discontinuation can cause withdrawal symptoms. Stable mood today, no c/o SI/HI, if feelings occur pt to call 911/ER. Discussed coping mechanisms such as exercise, group therapy, and counseling. f/u in 1 month and PRN 09/29/2024 ADHD (attention deficit hyperactivity disorder), combined type (ICD-10 - F90.2) ADHD stable, patient denies unfavorable side effects such as CP, stomach aches, or sleep difficulties. Weight is stable. OARRS reviewed. Patient enjoys being in school. Continue current regimen. Refills will be sent at todays visit. Follow up in 2 months and PRN. 09/12/2024 ADHD (attention deficit hyperactivity disorder), combined type (ICD-10 - F90.2) stop Methlyphenidate start Adderall Patient meets the criteria for the diagnosis of Attention Deficit Hyperactivity Disorder. Recommended treatment is FDA approved stimulant medication for this age group. At this time, will start *.Adderal Discussed adverse effects from medication including HTN, tachycardia, insomnia, irritability, headache, or decreased appetite. OARRS reviewed, patient history consistent with report. The patient verbalizes understanding with all questions answered thoroughly and is in agreement with treatment plan. Currently at low risk for self harm. Denies ongoing feelings of hopelessness. Denies ongoing suicidal ideation, intent or plan in session. Follow up in 1 month & PRN. 08/18/2024 ADHD (attention deficit hyperactivity disorder), combined type (ICD-10 - F90.2) 07/16/2024 Anxiety, generalized (ICD-10 - F41.1) Mood has room for improvement, will increase *Escitalopram to 20mg daily. Discussed risks and side effects of medication. Patient denies SI/HI today. Follow up if mood does not improve. Patient verbalized understanding. 08/15/2024 Nicotine dependence, unspecified, uncomplicated (ICD-10 - F17.200) 08/15/2024 Other Body Mass Index : Care Instructions material was printed Plan Of Treatment Next Appt Details Provider Name:Aranza Rose Jacinto torres, 11/24/2024 08:15:00 AM, [address], [place], [address], Provider Name:Dipti Sangita rose, 12/03/2024 10:30:00 AM, [address], [place], [address], Insurance Providers Payer Name Payer Address Payer Phone Subscriber Number Group Number Insured Name Patient Relationship to Insured Coverage Start Date Coverage End Date [facility] [address] [place] [address] [id number] [id number] Self - patient is the insured Medical (General) History Medical History History ICD Code PTSD Anxiety Epilepsy Depression Surgical History Surgery Date(Month/Year) section 2022 cholecystectomy 2014 corrective eye sugery/ cross eyed 1991 Hospitalization History Reason Date(Month/Year) [facility] [place] 2018
--- OUTSIDE RECORDS SUMMARY | 2024-11-03 14:13 | XMS_ITS | Encounter Summary ---
Author Organization [facility] Address [address] [place] [address] Phone Care Team Providers Care Milking System Installer Name Role Phone Carmen Barreto Unavailable [phone] Encounter Details Date Type Department Care Team (Late st Contact Info) Description 12/11/2023 Patient Risk Score [facility] [address] [facility] [address] [place] [id number] Social History Tobacco Use Types Packs/Day Years [...] on filedocumented in this encounter Care Teams Milking System Installer Relationship Specialty Start Date End Date Carmen Barreto APRN-CNP [address] [facility] [place] [address] PCP - Suzanne ACO PCP 12/09/23 02/07/24 documented as of this encounter
--- OUTSIDE RECORDS SUMMARY | 2024-11-03 14:13 | XMS_ITS | Clinical Summary ---
Author Organization [facility] Address [address] [place] [address] Phone Care Team Providers Care Hospital Scientist Name Role Phone Unavailable Primary Care Provider Unavailabl e Social History Tobacco Use Types Packs/Day Years Used Date Smoking Tobacco: Never Assessed Comments Unknown Sex and Gender Information Value Date Recorded Sex Assigned at Not on file Legal Sex Female 11:48 AM EST Gender Identity Not on file Sexual Orientation Not on file Plan of Treatment Health Maintenance Due Date Last Done Comments HIV Screening 1991 Lipid Panel 1991 IPV Vaccines (2 of 3 - 4-dose series) 12/02/1996 11/04/1996 Varicella Vaccines (1 of 2 - 13+ 2-dose series) 09/27/2004 Hepatitis C Screening 09/27/2009 Hepatitis B Vaccines (1 of 3 - 19+ 3-dose series) 09/27/2010 12/01/2011 HPV/Cotest 09/27/2012 Yearly Adult Physical 12/01/2012 12/01/2011 COVID-19 Vaccine ( season) 2023 12/24/2020, 08/17/2020 Influenza Vaccine (#1) 2024 8, 01/14/2015, 12/20/2011 Cervical Cancer Screening 10/16/2025 Pap Smear 10/16/2025 10/16/2022 DTaP/Tdap/Td Vaccines (6 - Td or Tdap) 07/12/2032 07/12/2022, 05/06/2018, 01/02/2010, Additional history exists Zoster Vaccines (1 of 2) 09/27/2041 MMR Vaccines Completed 11/04/1996 Meningococcal Vaccine Aged Out 01/05/2005 No cecy kieran eligible based on patient's age to complete this topic HPV Vaccines Completed 02/03/2009, 09/08, 08/22/2007 Pneumococcal Vaccine: Pediatrics and At-Risk Adult Patients Aged Out 10/26/2015 No longer eligible based on patient's age to complete this topic HIB Vaccines Aged Out No longer eligi ble based on patient's age to complete this topic Hepatitis A Vaccines Aged Out No long er eligible based on patient's age to complete this topic Rotavirus Vaccines Aged Out No longer eligible based on patient's age to complete this topic
--- OUTSIDE RECORDS SUMMARY | 2024-11-03 14:13 | XMS_ITS | Continuity of Care Document ---
Author Organization [facility] Address [facility] [address] [place] [address] Phone [phone] Care Team Providers Care Translator Interpreter Name Role Phone Family/Friend Care Team Information Fund Manager U navailable Allergies and adverse reactions Active Allergies Criticality Reaction Severity Comments Date No Known Allergies Unable to assess criticality 09/03/2007 Medications Active Medications SIG Qnty Indications Ordering Provider Date Tramadol PFW30ds Tablets 1 q6h prn 30tabs Zeb Joseph M.D. 09/03/2007
== END 2024-11-03 15:35 | disposition home or self-care (01) ==
PROVIDERS: Emergency Provider Emergency Medicine
DX: L50.9 Urticaria, unspecified (principal)
CPT/HCPCS: 96374; 96375; 99284; J2919; J3490